=== PATIENT | female | born 1995 | race Caucasian/White ===

== ENCOUNTER → 2024-11-23 | Outpatient (CLI) | payer MEDICAID, SELFPAY ==
[2024-11-23 18:13] LABS: Hematocrit 39.3 % (37-47); Hemoglobin 12.6 g/dL (12.0-15.0); Immature Granulocytes Count 0.030 X10^3/uL (0.0-0.0); Mean Corp Hgb Conc 32.1 g/dL (32-36); Mean Corpuscular Volume 85.6 fL (81-99); Mean Platelet Vol. 10.8 fl (6.2-12.0); NRBC Flagged by Analyzer 0 % (0-5); Platelet Count 399 K/mm3 (150-450); RBC Distribution Width CV 14.4 % (11.6-14.6); RBC Distribution Width SD 44.5 fl (35.1-43.9); Red Blood Count 4.59 M/mm3 (4.2-5.4); White Blood Count 8.0 K/mm3 (4.4-11.0)
[2024-11-23 18:38] LABS: AST(SGOT) 32 U/L (<=31); Alanine Aminotransfer ALT/SGPT 38 U/L (<=34); Albumin, Serum 4.1 g/dL (3.5-5.0); Alkaline Phosphatase 86 U/L (35-104); Anion Gap 12 (5-15); BUN 9 mg/dL (4-19); BUN/Creat Ratio 13.1 RATIO (10-20); Calcium,Total 9.2 mg/dL (7.6-11.0); Carbon Dioxide 23.9 mmol/L (21.0-32.0); Chloride 102 mmol/L (98-108); Ferritin 49 ng/mL (22-378); Globulin 3.4 g/dL (2.2-4.2); Glucose 174 mg/dL (70-99); Potassium 3.6 mmol/L (3.3-5.1); T3 Total - Triiodothyronine 1.03 ng/mL (0.80-2.00); Vitamin B12 534 pg/mL (180-914); Vitamin D,25 Hydroxy 12.9 ng/mL (30-100)
[2024-11-27 05:07] LABS: Zinc, Plasma or Serum 63 ug/dL (44-115)
== END | disposition home or self-care (01) ==
LOC: MTLAB 15:20
PROVIDERS: PCP Internal Medicine; Referring Provider Physician Assistant Medical; Visit Provider Physician Assistant Medical
DX: L64.8 Other androgenic alopecia (principal)
CPT/HCPCS: 36415; 80053; 82306; 82607; 82728; 84439; 84443; 84480; 84630; 85025; 86038; 86376